=== PATIENT | female | born 1950 | race Caucasian/White ===

== ENCOUNTER → 2018-08-30 | Outpatient (REF) | payer MEDICARE, OTHER ==
[~2018-08-30] MED LIST: /LOR25TA PO; /ZOLP6ER OR; ALPR0.25 OR; ARTHROTEC PO; BACL TOP; BUPR100T12 PO; COQ10 PO; EVISTA PO; HYDROCODONE PO; LAXATIVE PO; LORATIDINE PO; MULTI 50+ PO; NEUR100C PO; NEXI1CAP3 OR; OMEP20TA7 OR; ONDA-1 OR; PENNSAID TOP; SPIROLACTONE PO; VIT D 2000 PO; VITA100027 OR; VITA500T PO; ZINC220T2 OR; [UNRECOGNIZED DRUG - OTHER] PO; [UNRECOGNIZED DRUG - OTHER] TOP; vitamin B6 PO
== END ==
LOC: M SFHCPLAZ 17:32
PROVIDERS: ATTEND Dermatology
DX: D23.30 Other benign neoplasm of skin of unspecified part of face (principal)

== ENCOUNTER → 2021-07-05 | Outpatient (REF) | payer MEDICARE, OTHER | LOC: M LAB REF 14:28 | PROVIDERS: ATTEND Physician Assistant | DX: L57.0 Actinic keratosis (principal) ==